=== PATIENT | female | born 1965 | race Caucasian/White ===

== ENCOUNTER 2017-05-04 17:55 | Emergency (ER) | payer MEDICAID ==
[~2017-05-04] VITALS: Ht 157.5 cm; Wt 77.1 kg
[2017-05-04 18:00] VITALS: BP 144/89
--- NOTE | 2017-05-04 18:05 | NUR ---
52/F BIB FAMILY /C/O LEFT ANKLE PAIN S/P FALL AT HOME X TODAY. HX CERVICAL CA. DENIES N/V/D; SKIN IS PINK/WARM/DRY; AAOX4 WITH EVEN AND UNSTEADY GAIT; LUNGS CLEAR BL; HR EVEN AND REGULAR; PT DENIES ANY FEVER, CP, SOB, OR COUGH AT THIS TIME; PATIENT STATES PAIN OF 10/10 AT THIS TIME; VSS; PATIENT POSITIONED FOR COMFORT; HOB ELEVATED; BEDRAILS UP X2; BED DOWN. ER MD MADE AWARE OF PT STATUS.
[2017-05-04] MEDS ORDERED: KETOROLAC 30 MG/ML VIAL IM ONE (18:10)
--- NOTE | 2017-05-04 18:33 | NUR ---
Patient discharged with v/s stable. Written and verbal after care instructions given and explained. Patient alert, oriented and verbalized understanding of instructions. AMB WITH CRUTCHES. All questions addressed prior to discharge. ID band removed. Patient advised to follow up with PMD. Rx of MOTRIN given. Patient educated on indication of medication including possible reaction and side effects. Opportunity to ask questions provided and answered.
[2017-05-04 18:34] VITALS: BP 132/79
== END 2017-05-04 18:33 | disposition home or self-care (01) ==
LOC: MED 17:55
DX: S82.52XA Displaced fracture of medial malleolus of left tibia, initial encounter for closed fracture (principal); Z88.8 Allergy status to other drugs, medicaments and biological substances; Z71.6 Tobacco abuse counseling; Z85.9 Personal history of malignant neoplasm, unspecified; W19.XXXA Unspecified fall, initial encounter; Y93.89 Activity, other specified; Y92.89 Other specified places as the place of occurrence of the external cause; Y99.8 Other external cause status
CPT/HCPCS: 29515; 73610; 96372; 99284; J1885

== ENCOUNTER 2017-10-06 19:49 | Emergency (ER) | payer MEDICAID, OTHER ==
[~2017-10-06] VITALS: Ht 157.5 cm; Wt 86.7 kg
[2017-10-06 19:57] VITALS: BP 137/100
--- NOTE | 2017-10-06 20:15 | NUR ---
Note undone in EDM - 10/06/17 at 2031 by [email or web address] PATIENT IS A 52 Y/O FEMALE WHO PRESENTS TO THE ED C/O COUGH. PT STATES, "MY BODY HAS BEEN HURTING ALL THIS WEEK, I THINK I HAVE THE FLU." PT REPORTS 8/10 BODY ACHES AND RIB PAIN THAT DOES NOT RADIATE. PT REPORTS SOB, LUNG SOUNDS CLEAR BILATERALLY. NOTED COUGH THAT IS NONPRODUCTIVE. PT DENIES CP, N/V/D. PT AAOX4, RR EVEN/UNLABORED. PT REPOSITIONED FOR COMFORT, BED IN LOWEST POSITION. ER MD DR. HILLIARD NOTIFIED. WILL CONTINUE TO MONITOR.
--- NOTE | 2017-10-06 20:20 | NUR ---
TO ER BED 7
--- NOTE | 2017-10-06 20:20 | NUR ---
PATIENT IS A 52 Y/O FEMALE WHO PRESENTS TO THE ED C/O COUGH. PT STATES, "MY BODY HAS BEEN HURTING ALL THIS WEEK, I THINK I HAVE THE FLU." PT REPORTS 8/10 BODY ACHES AND RIB PAIN THAT DOES NOT RADIATE. PT REPORTS SOB, LUNG SOUNDS CLEAR BILATERALLY. NOTED COUGH THAT IS NONPRODUCTIVE. PT DENIES CP, N/V/D. PT AAOX4, RR EVEN/UNLABORED. PT REPOSITIONED FOR COMFORT, BED IN LOWEST POSITION. ER MD DR. HILLIARD NOTIFIED. WILL CONTINUE TO MONITOR.
--- NOTE | 2017-10-06 21:30 | NUR ---
Patient discharged with v/s stable. Written and verbal after care instructions given and explained. Patient alert, oriented and verbalized understanding of instructions. Ambulatory with steady gait. All questions addressed prior to discharge. ID band removed. Patient advised to follow up with PMD. Rx of DEXTROMEHTORPHAN HYDROBROMIDE/PROMEZATHINE HYDROCHLORIDE 15 MG-6.25MG/5ML & AZITHROMYCIN 250 MG given. Patient educated on indication of medication including possible reaction and side effects. Opportunity to ask questions provided and answered.
[2017-10-06 21:31] VITALS: BP 131/89
== END 2017-10-06 21:30 | disposition home or self-care (01) ==
LOC: MED 19:49
DX: J20.9 Acute bronchitis, unspecified (principal); Z85.41 Personal history of malignant neoplasm of cervix uteri; Z88.8 Allergy status to other drugs, medicaments and biological substances
CPT/HCPCS: 99283